=== PATIENT | male | born 1950 | race Caucasian/White ===

== ENCOUNTER 2019-03-03 23:17 | Inpatient (IN) | payer MEDICARE, OTHER ==
[2019-03-04] MEDS ORDERED: Loperamide CAP* 2 MG PO PRN (03:12)
[2019-03-04] MEDS ORDERED: Nicotine Lozenge* mini 2 MG LOZNG.MINI MT PRN (05:40)
[2019-03-04] MEDS ORDERED: Nicotine* 2MG (FRUIT FLAVOR) GUM PO PRN (05:40)
[2019-03-04 06:05] LABS: ABS Basophils 0.1 10^3/ul (0-0.2); ABS Eosinophils 0.2 10^3/ul (0-0.6); ABS Lymphocytes 2.5 10^3/ul (1.0-4.8); ABS Monocytes 0.8 10^3/ul (0-0.8); ABS Neutrophils 7.8 10^3/ul (1.5-7.7); Eosinophil % 2.1 %; Hematocrit 43 % (42-52); Hemoglobin 14.5 g/dL (14.0-18.0); Lymphocyte % 21.8 %; Mean Corpuscular HGB Conc 34 g/dL (31-36); Mean Corpuscular Hemoglobin 29 pg (27-31); Mean Corpuscular Volume 85 fL (80-94); Nucleated Red Blood Cells % 0.1; Platelet Count 268 10^3/uL (150-450); Red Blood Count 5.08 10^6 /uL (4.18-5.48); Red Cell Distribution Width 16 % (10-15); White Blood Count 11.3 10^3/uL (3.5-10.8)
[2019-03-04 06:13] LABS: INR 1.29 (0.82-1.09)
[2019-03-04 06:23] LABS: Albumin 3.2 g/dL (3.2-5.2); Albumin/Globulin Ratio 0.9 (1-3); BUN/Creatinine Ratio 18.7 (8-20); Calcium 8.7 mg/dL (8.6-10.3); EGFR African American 125.3 (>60); EGFR Non-African American 103.6 (>60); Globulin 3.5 g/dL (2-4); Potassium 3.5 mmol/L (3.5-5.0); Total Bilirubin 0.8 mg/dL (0.2-1.0); Total Protein 6.7 g/dL (6.4-8.9)
[2019-03-04 06:25] LABS: Troponin I 0.03 ng/mL (<0.04)
[2019-03-04 06:38] LABS: TSH (Thyroid Stimulating Horm) 0.45 mcIU/mL (0.34-5.60)
--- NOTE | 2019-03-04 07:47 | PN ---
Subjective Date of Service: 03/04/19 Interval History: Admitted earlier this morning. Transferred from [facility] for symptomatic bradycardia. 68M with HTN, brought to ED- for near syncope, pale and clammy appearing. At other facility, found to have symptomatic bradycardia, and transferred to our hospital. This morning, patient was asleep, but arousable, reporting feeling okay. No chest pain, no palpitations, some lightheadedness. Objective Active Medications: Acetaminophen (Tylenol Tab*) 650 mg PO Q4H PRN PRN Reason: FEVER/PAIN Heparin Sodium (Porcine) (Heparin Vial(*)) 5,000 units SUBCUT Q8HR ANKUR Sodium Chloride (Ns 0.9% 1000 Ml) 1,000 mls @ 125 mls/hr IV PER RATE ANKUR Loperamide HCl (Imodium Cap*) 2 mg PO Q8HR PRN PRN Reason: DIARRHEA Nicotine Polacrilex (Nicotine Gum*) 2 mg PO Q2H PRN PRN Reason: CRAVING Nicotine Polacrilex (Nicotine Lozenge Mini) 2 mg MT Q2H PRN PRN Reason: CRAVING Vital Signs - 8 hr 03/04/19 03/04/19 03/04/19 02:34 02:43 02:46 Temperature Pulse Rate 45 43 Respiratory 12 20 21 Rate Blood Pressure 166/86 94/82 (mmHg) O2 Sat by Pulse 99 99 Oximetry 03/04/19 03/04/19 03/04/19 03:00 03:01 03:16 Temperature Pulse Rate 43 43 45 Respiratory 17 15 19 Rate Blood Pressure 162/81 153/79 (mmHg) O2 Sat by Pulse 99 98 98 Oximetry 03/04/19 03/04/19 03/04/19 03:31 03:46 04:00 Temperature 99.0 F Pulse Rate 45 42 40 Respiratory 19 17 19 Rate Blood Pressure 161/83 153/85 (mmHg) O2 Sat by Pulse 97 97 97 Oximetry 03/04/19 03/04/19 03/04/19 04:01 04:16 04:31 Temperature Pulse Rate 41 43 41 Respiratory 17 20 17 Rate Blood Pressure 153/86 154/82 157/82 (mmHg) O2 Sat by Pulse 96 98 96 Oximetry 03/04/19 03/04/19 03/04/19 04:45 05:00 05:01 Temperature Pulse Rate 42 42 44 Respiratory 16 16 16 Rate Blood Pressure 162/91 143/76 (mmHg) O2 Sat by Pulse 96 94 94 Oximetry 03/04/19 03/04/19 03/04/19 05:16 05:31 06:00 Temperature Pulse Rate 47 44 44 Respiratory 15 17 16 Rate Blood Pressure 136/76 143/75 (mmHg) O2 Sat by Pulse 92 94 97 Oximetry 03/04/19 03/04/19 03/04/19 06:01 06:31 07:00 Temperature Pulse Rate 41 42 42 Respiratory 15 15 14 Rate Blood Pressure 129/71 142/69 (mmHg) O2 Sat by Pulse 94 95 95 Oximetry 03/04/19 07:01 Temperature Pulse Rate 44 Respiratory 15 Rate Blood Pressure 129/66 (mmHg) O2 Sat by Pulse 95 Oximetry Oxygen Devices in Use Now: Nasal Cannula Appearance: Elderly male lying in bed, not in distress Respiratory: Symmetrical Chest Expansion and Respiratory Effort, Clear to Auscultation Cardiovascular: - - No chest wall tenderness, regular bradycardia. Abdominal: NL Sounds; No Tenderness; No Distention, No Hepatosplenomegaly Extremities: No Edema Neurological: Alert and Oriented x 3 Result Diagrams: 03/04/19 05:30 03/04/19 05:30 Microbiology and Other Data: Microbiology 03/04/19 02:50 Nasal Screen MRSA (PCR) - Final Nasal Mrsa Not Detected Assess/Plan/Problems-Billing Assessment: 68M, with hx of HTN here with bradycardia. - Patient Problems (1) Symptomatic sinus bradycardia Current Visit: Yes Status: Acute Code(s): R00.1 - BRADYCARDIA, UNSPECIFIED SNOMED Code(s): 427078917 Comment: Normotensive, but sinus bradycardia with symptoms. Await cardiology input ECHO pending Lyme's titer pending will get troponin and Mg level. (2) AAA (abdominal aortic aneurysm) Current Visit: Yes Status: Acute Code(s): I71.4 - ABDOMINAL AORTIC ANEURYSM , WITHOUT RUPTURE SNOMED Code(s): 087280621 Comment: 4 cm ascending thoracic aortic aneurysm noted on CTA done at [facility]. unsure of baseline. hx of HTN Due to bradycardia cannot start BB at this point. Resume lisinopril to acheive better BP control, Will check lipids. (3) HTN (hypertension) Current Visit: Yes Status: Acute Code(s): I10 - ESSENTIAL (PRIMARY) HYPERTENSION SNOMED Code(s): 63059037 Comment: will resume home dose lisinopril. (4) DVT prophylaxis Current Visit: Yes Status: Acute Code(s): Z29.9 - ENCOUNTER FOR PROPHYLACTIC MEASURES, UNSPECIFIED SNOMED Code(s): 107385643 Comment: Heparin subQ
[2019-03-04] MEDS: Heparin VIAL(*) 5000 UNITS/ML VIAL (FIVE THOUSAND) SUBCUT SCH ×3 (07:51→21:01)
[2019-03-04] MEDS ORDERED: Iohexol 350* (CONTRAST) 500 ML MDV IV ONE (07:56)
--- NOTE | 2019-03-04 08:15 | HP ---
CC: Dr. Casillas * HISTORY AND PHYSICAL: DATE OF ADMISSION: 03/04/19 TIME OF ADMISSION: 5 o'clock a.m. CHIEF COMPLAINT: Dizziness. HISTORY OF PRESENT ILLNESS: This is a 68-year-old man with history of hypertension who presented to [facility] this morning with sudden onset of dizziness. When he woke up today, he felt great and had no concerns or complaints. He took a shower and got out of the shower and bent down to pick out some clothing and as he stood up, he felt sudden onset of dizziness, room spinning and feeling like he was going to pass out. He sat down and rested and shortly thereafter, his daughter came over to check on him and found him to be clammy and minimally responsive. So, she called EMS. In the ED, he was found to have heart rate in the 40s, which is new for him. Upon review of his outpatient records and given the concern for symptomatic bradycardia, he was transferred to our inpatient unit for cardiology evaluation. Also pertinent, his daughter Tricia is in the room and explained her concern for a CVA. At admission, she reports that he was having left-sided facial droop, which has now resolved. Mr. Spicer currently only complains of headache and points to his forehead, this headache began this morning and has been associated with light sensitivity. REVIEW OF SYSTEMS: He denies any recent illness, cough, cold, runny nose, sore throat, fever, chills, chest pain, shortness of breath, syncope. He does admit to diarrhea that was worse over the last 3 days than usual. He says he is unable even quantify how much diarrhea he was having. This was associated with poor appetite, but no abdominal pain, no travel. He does work outside, but does not recall any tick bites. ER COURSE: He received 1 L of normal saline, 0.1 mg of clonidine, 4 mg of Zofran and another liter of normal saline. PAST MEDICAL HISTORY: Hypertension, Crohn disease, DVT. SOCIAL HISTORY: He lives alone. He is a current smoker. He occasionally drinks alcohol. He works at a [employer]. ALLERGIES: PENICILLIN. FAMILY HISTORY: His dad had CABG. HOME MEDICATIONS: 1. Amlodipine 5 mg daily. 2. Lisinopril 20 mg daily. 3. Loperamide 2 mg t.i.d. PAST SURGICAL HISTORY: Left foot surgery and colectomy. PHYSICAL EXAMINATION GENERAL: Alert, well-appearing man, who is in no distress. He is resting in bed with his daughter, Tricia at the bedside. VITAL SIGNS: Temperature 99.0, heart rate 41, respiratory rate 16, pulse ox 94 % on room air, blood pressure 143/76. HEENT: Pupils 4 mm bilaterally and reactive to light. Oral mucosa is moist. NECK: No JVP. No adenopathy. CHEST: He is bradycardic and regular rhythm with no murmurs. His PMI is nondisplaced. LUNGS: His lungs are clear bilaterally. ABDOMEN: With a large, old, healed scar, soft, nontender, nondistended. No guarding or rebound. Bowel sounds normoactive. EXTREMITIES: No edema, rashes or ulcers. NEUROLOGIC: His face is symmetric. His strength is 5/5 in all extremities. He has no nystagmus. DIAGNOSTIC STUDIES/LAB DATA: Labs from [facility]: White blood cells 16.6, hemoglobin 15.6, platelets 304, 4% bands, which is within normal limits. D- dimer 490. Sodium 140, potassium 3.4, chloride 103, bicarb 27, magnesium 1.9, creatinine 1.2, BUN 17, troponin 0.015 and 0.14, BNP 237. CT head: I do not have the official report, but I have the progress note from the PA, which reports that the CT head showed mild atrophy and otherwise negative study. CTA chest: No evidence of pulmonary embolus. 4-cm ascending thoracic aortic aneurysm, azygos fissure, which is a normal variant. Chest x-ray: Low lung volumes with moderate pulmonary vascular congestion, which in part may be accentuated by the low lung volume. Recommend clinical correlation and followup. EKG: Sinus bradycardia at 41. Normal axis. MO is 175, QRS is 131, QTc is 433. T- wave flattening in 2, 3 and aVF. ASSESSMENT AND PLAN: This is a 68-year-old man with a history of hypertension, tobacco use who presents to the emergency department with sudden onset of dizziness that started this morning and is found to be bradycardic. 1. Dizziness: I agree that symptomatic bradycardia may explain his symptoms today, however a central nervous system cause is also possible. He has no nystagmus to suggest something like benign paroxysmal positional vertigo contributing to symptoms. His CT head was reported to be normal--I have contacted [facility] and asked them to fax the results, as they did not come with the transfer records. I need to get these results. Regarding his bradycardia, the PA at [facility] reviewed his outpatient records and he was never noted to be bradycardic and his heart rate was reported to be in the 80s. This is a sinus bradycardia and he currently is hemodynamically stable. So, he needs no urgent intervention. I am checking a TSH and a Lyme antibody, though this would more likely present as a heart block than a sinus bradycardia. I will order an echocardiogram for this morning and consult Cardiology. No current need for atropine or transcutaneous pacing. 2. Left-sided facial droop, now resolved. This is concerning for a transient ischemic attack versus CVA. I am concerned that this may have been related to poor perfusion in the setting of bradycardia. I will add a bubble study to his TTE and also check a CTA of his brain since a vessel occlusion would be particularly susceptible to low- flow states like sinus bradycardia. 3. Leukocytosis. He has no localizing signs or symptoms except for diarrhea several days ago, which has now resolved. I know of no gastrointestinal illnesses that provoke sinus bradycardia, however, I will check stool culture and ova and parasite. Again, I would not believe this is necessarily relevant to his presentation of dizziness. However, dehydration may have provoked it. 4. Thoracic aortic aneurysm. This was an incidental finding on his chest CTA. 5. Tobacco use. Nicotine replacement offered. 6. Hypertension. I am holding his antihypertensives in the setting of bradycardia. 7. DVT prophylaxis. Heparin subcutaneously. 8. Disposition. Admit to the intensive care unit with cardiology consult. 9. Full code. I have discussed this with Partha and his daughter. 10. His healthcare proxy is his daughter, Tricia. [id number]/[facility]PS #: [id number] MTDGaby
[2019-03-04 08:48] LABS: Magnesium 1.8 mg/dL (1.9-2.7)
[2019-03-04 08:51] LABS: Troponin I 0.02 ng/mL (<0.04)
[2019-03-04] MEDS ORDERED: amLODIPine TAB* 5 MG PO SCH (09:00)
[2019-03-04] MEDS ORDERED: Lisinopril TAB* 10 MG PO SCH (09:00)
[2019-03-04] MEDS ORDERED: Magnesium Sulfate 1 GM IV* 1 GM/100 ML BAG IV ONE (09:39)
[2019-03-04] MEDS: Lisinopril TAB* 10 MG PO SCH (10:23)
[2019-03-04] MEDS ORDERED: Meclizine TAB* 12.5 MG PO PRN (12:13)
[2019-03-04] MEDS ORDERED: Diphenoxylat/Atrop 2.5-0.025M* 1 TAB PO PRN (12:37)
[2019-03-04] MEDS: Aspirin 81 mg CHEW TAB* 81 MG TAB.CHEW PO SCH (13:12)
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
[2019-03-04] MEDS: NS 0.9% 1000 ML** 1,000 ML IV SCH ×2 (14:58→16:51)
[2019-03-04] MEDS: Acetaminophen TAB* 325 MG PO PRN (20:59)
[2019-03-04] MEDS: Famotidine IV* 10 MG/ML 2 ML (20 mg) IV SLOW PU SCH (21:01)
[2019-03-05] MEDS: NS 0.9% 1000 ML** 1,000 ML IV SCH (00:28)
[2019-03-05] MEDS: Ondansetron INJ* 2 MG/ML VIAL IV PRN (06:57)
[2019-03-05] MEDS: Heparin VIAL(*) 5000 UNITS/ML VIAL (FIVE THOUSAND) SUBCUT SCH ×3 (06:57→21:53)
[2019-03-05] MEDS: Aspirin 81 mg CHEW TAB* 81 MG TAB.CHEW PO SCH (08:28)
[2019-03-05] MEDS: Lisinopril TAB* 10 MG PO SCH (08:28)
[2019-03-05] MEDS: Famotidine IV* 10 MG/ML 2 ML (20 mg) IV SLOW PU SCH ×2 (08:28→21:53)
[2019-03-05 09:27] LABS: Calcium 8.1 mg/dL (8.6-10.3)
[2019-03-05 09:32] LABS: BUN/Creatinine Ratio 14.5 (8-20); EGFR African American 111.5 (>60); EGFR Non-African American 92.1 (>60)
--- NOTE | 2019-03-05 11:00 | PN ---
Subjective Date of Service: 03/05/19 Interval History: Transferred from ICU to telemetry floor yesterday No acute issues overnight, continues to have bradycardia, yesterday attempt to walk/exertion did not work as patient felt dizzy. patient reports dizziness is on/off- improved since arrival, and meclizine seems to help. Additionally did not get loperamide yesterday- and patient states no BM today, and yesterday per patient had some brown liquid on underwear- but reports no additional BM. Objective Active Medications: Acetaminophen (Tylenol Tab*) 650 mg PO Q4H PRN PRN Reason: FEVER/PAIN Last Admin: 03/04/19 20:59 Dose: 650 mg Amlodipine Besylate (Norvasc Tab*) 5 mg PO DAILY [facility] Aspirin (Aspirin 81 Mg Chew Tab*) 81 mg PO DAILY [facility] Last Admin: 03/05/19 08:28 Dose: 81 mg Diphenoxylate HCl/Atropine (Lomotil Tab*) 1 tab PO BID PRN PRN Reason: DIARRHEA Famotidine (Pepcid Iv*) 20 mg IV SLOW PU BID [facility] Last Admin: 03/05/19 08:28 Dose: 20 mg Heparin Sodium (Porcine) (Heparin Vial(*)) 5,000 units SUBCUT Q8HR [facility] Last Admin: 03/05/19 06:57 Dose: 5,000 units Lisinopril (Prinivil Tab*) 20 mg PO DAILY [facility] Last Admin: 03/05/19 08:28 Dose: 20 mg Meclizine HCl (Antivert Tab*) 12.5 mg PO Q8HR PRN PRN Reason: DIZZINESS Last Admin: 03/04/19 21:00 Dose: 12.5 mg Nicotine Polacrilex (Nicotine Gum*) 2 mg PO Q2H PRN PRN Reason: CRAVING Nicotine Polacrilex (Nicotine Lozenge Mini) 2 mg MT Q2H PRN PRN Reason: CRAVING Ondansetron HCl (Zofran Inj*) 4 mg IV Q6H PRN PRN Reason: NAUSEA Last Admin: 03/05/19 06:57 Dose: 4 mg Vital Signs - 8 hr 03/05/19 03/05/19 03:44 07:39 Temperature 98.1 F 97.2 F Pulse Rate 46 39 Respiratory 18 16 Rate Blood Pressure 125/59 137/61 (mmHg) O2 Sat by Pulse 99 96 Oximetry Oxygen Devices in Use Now: Nasal Cannula - was on nasal canula at 2 liters, removed it. will monitor off oxygen. Appearance: Elderly male in bed, not in distress. Eyes: PERRLA Respiratory: Symmetrical Chest Expansion and Respiratory Effort, Clear to Auscultation Cardiovascular: - - regular bradycardia. Abdominal: NL Sounds; No Tenderness; No Distention, No Hepatosplenomegaly, - - surgical scars noted. Neurological: Alert and Oriented x 3, - - no nystagmus. Result Diagrams: 03/04/19 05:30 03/05/19 07:15 Microbiology and Other Data: Microbiology 03/04/19 02:50 Nasal Screen MRSA (PCR) - Final Nasal Mrsa Not Detected Assess/Plan/Problems-Billing Assessment: 68M, with hx of HTN here with bradycardia. - Patient Problems (1) Symptomatic sinus bradycardia Current Visit: Yes Status: Acute Code(s): R00.1 - BRADYCARDIA, UNSPECIFIED SNOMED Code(s): 145632439 Comment: Sinus bradycardia w/ symptoms- unclear if sx are due to bradycardia or due to vertigo. Cardiology evalauted patient, at this point no pacemaker, patient was taking loperamide daily three times a day- which can cause bradycardia- d/w patient and loperamide d/c'ed started lomotil instead. ECHO pending Lyme's titer negative. Mg repleted 03/04, (2) AAA (abdominal aortic aneurysm) Current Visit: Yes Status: Acute Code(s): I71.4 - ABDOMINAL AORTIC ANEURYSM , WITHOUT RUPTURE SNOMED Code(s): 629583851 Comment: 4 cm ascending thoracic aortic aneurysm noted on CTA done at [facility]. unsure of baseline. hx of HTN Due to bradycardia cannot start BB at this point. c/w lisnopril, resumed home dose atenolol dicussed smoking cessation. (3) HTN (hypertension) Current Visit: Yes Status: Acute Code(s): I10 - ESSENTIAL (PRIMARY) HYPERTENSION SNOMED Code(s): 32366810 Comment: lisinopril restarted 03/04,,and norvasc added today. (4) DVT prophylaxis Current Visit: Yes Status: Acute Code(s): Z29.9 - ENCOUNTER FOR PROPHYLACTIC MEASURES, UNSPECIFIED SNOMED Code(s): 413239439 Comment: Heparin subQ (5) Crohn disease Current Visit: Yes Status: Acute Code(s): K50.90 - CROHN'S DISEASE, UNSPECIFIED, WITHOUT COMPLICATIONS SNOMED Code(s): 73312696 Comment: Hx of crohn's disease, with numerous bowel surgeries, per patient was started on loperamide- which he takes three times a day, due to bradycardia - loperamide needs to be held, trial of lomotil. No BM today. (6) Vertigo Current Visit: Yes Status: Acute Code(s): R42 - DIZZINESS AND GIDDINESS SNOMED Code(s): 883141678 Comment: ears checked- no acute issues. CT head done at other facility- negative. MRI pending, started asa 81mg in meantime. meclizine PRN.
--- NOTE | 2019-03-05 11:41 | ECHO ---
*[facility]* [place] [address] Fax #: [phone] Transthoracic Echocardiogram Patient: Partha Spicer : 1950 Study Date: 03/05/2019 Age: 68 Gender: M HR: 46 bpm Height: 71 in /180.3 cm BSA: 2.3 m^2 Weight: 245.5 lb /111.6 kg BMI: 34.3 kg/m^2 *Structural Mill Supervisor: * Alma Doss [facility] *Referring Physician: * Ruth Ann Grewal *Reading Physician: * Erwin Bethea MD Indications: Abnormal EKG. History: DVT. Risk factors: Current tobacco use. Conclusions Summary: 1. Left ventricle: The cavity size is normal. Wall thickness is moderately increased. Systolic function is normal. The estimated ejection fraction is 55-60%. Wall motion is normal; there are no regional wall motion abnormalities. 2. Left atrium: The atrium is severely dilated. 3. Right atrium: The atrium is moderately to severely dilated. 4. Mitral valve: The findings are consistent with mild stenosis. 5. Ascending aorta: The ascending aorta is mildly dilated. 6. There is no prior echocardiogram available to compare with at this time. Study data: Transthoracic echocardiogram. Procedure: Transthoracic echocardiography was performed. Image quality was fair. Complete 2D, spectral Doppler, and color flow Doppler. Location: Bedside. Patient status: Inpatient. Patient room number: 444 01. Rhythm: Bradycardia. Findings Left ventricle: The cavity size is normal. Wall thickness is moderately increased. Systolic function is normal. The estimated ejection fraction is 55-60%. Wall motion is normal; there are no regional wall motion abnormalities. Left ventricular diastolic function parameters are normal. Right ventricle: The cavity size is normal. Systolic function is normal. Left atrium: The atrium is severely dilated. Right atrium: The atrium is moderately to severely dilated. Mitral valve: The annulus is mildly to moderately calcified. The leaflets are mildly thickened. The findings are consistent with mild stenosis. There is trivial regurgitation. Aortic valve: The leaflets are mildly thickened. There is no evidence of stenosis. There is no significant regurgitation. Tricuspid valve: The leaflets are normal thickness. There is no significant regurgitation. Pulmonic valve: The leaflets are normal thickness. There is no evidence of stenosis. There is trivial regurgitation. Aorta: Aortic root: The aortic root is appears normal. Ascending aorta: The ascending aorta is mildly dilated. Aortic arch: The aortic arch is poorly visualized. Pericardium: There is no significant pericardial effusion. Pulmonary arteries: Not well visualized. Systolic pressure can not be accurately estimated. Systemic veins: Inferior vena cava: The vessel is dilated. The respirophasic diameter changes are in the normal range (>= 50%). Measurements Left ventricle Value Ref Right atrium continued Value Ref ABIGAIL, LAX 5.2 cm 4.2 - 5.8 ML dim, ES, A4C (H) 4.5 cm 2.6 - 4.4 ESD, LAX 3.3 cm 2.5 - 4.0 Estimated RAP 8 mm Hg --------- FS, LAX 36 % 25 - 43 PW, ED, LAX (H) 1.7 cm 0.6 - 1.0 Aortic valve Value Ref EF 66 % 52 - 72 Eitan diam, ED 2.2 cm --------- E', lat eitan, TDI 10.8 cm/sec >=10.0 Peak v, S 1.72 m/sec ----- ---- E/e', lat eitan, 11 VTI, S 34.2 cm -------- - TDI Mean grad, S 5.0 mm Hg --------- E', med eitan, TDI 7.5 cm/sec >=7.0 Peak grad, S 12.0 mm Hg ----- ---- E/e', med eitan, 16 TDI Mitral valve Value Ref E', avg, TDI 9.2 cm/sec Peak E 1.23 m/sec -------- - E/e', avg, TDI 13 <=14 Peak A 0.41 m/sec ----- ---- Decel time 309 ms --------- LVOT Value Ref PHT 124 ms --------- Peak carly, S 1.3 m/sec Mean grad, D 2.0 mm Hg --------- Peak grad, S 7 mm Hg Peak grad, D 5.0 mm Hg --------- Mean grad, S 3 mm Hg Peak E/A ratio 3 --------- MVA, PHT 1.8 cm^2 --------- Ventricular septum Value Ref IVS, ED (H) 1.5 cm 0.6 - 1.0 Pulmonic valve Value Ref Peak v, S 0.77 m/sec --------- Right ventricle Value Ref Peak grad, S 2.0 mm Hg --------- ABIGAIL, LAX 3.5 cm ABIGAIL minor ax, (H) 3.9 cm 1.9 - 3.5 Aortic root Value Ref A4C mid Root diam 3.2 cm <4.4 Left atrium Value Ref Ascending aorta Value Ref AP dim, ES (H) 4.50 cm 3.00 - AAo AP diam, S 3.8 cm --------- 4.00 ML dim, A4C 5.8 cm Inferior vena cava Value Ref SI dim, A4C 7.2 cm Diam 2.6 cm --------- Vol/bsa, ES, A/L (H) 51 ml/m^2 16 - 34 Right atrium Value Ref SI dim, ES (H) 6.8 cm 3.4 - 5.3 Legend: (L) and (H) heather values outside specified reference range. Prepared and electronically signed by Erwin Bethea MD 03/05/2019 11:41
[2019-03-05 12:38] LABS: ABS Basophils 0.1 10^3/ul (0-0.2); ABS Eosinophils 0.2 10^3/ul (0-0.6); ABS Lymphocytes 2.3 10^3/ul (1.0-4.8); ABS Monocytes 0.7 10^3/ul (0-0.8); ABS Neutrophils 6.3 10^3/ul (1.5-7.7); Eosinophil % 2.2 %; Hematocrit 41 % (42-52); Hemoglobin 13.7 g/dL (14.0-18.0); Lymphocyte % 24.1 %; Mean Corpuscular HGB Conc 33 g/dL (31-36); Mean Corpuscular Hemoglobin 29 pg (27-31); Mean Corpuscular Volume 86 fL (80-94); Mean Platelet Volume 7.3 fL (7.4-10.4); Nucleated Red Blood Cells % 0.1; Platelet Count 249 10^3/uL (150-450); Red Blood Count 4.79 10^6 /uL (4.18-5.48); Red Cell Distribution Width 15 % (10-15); White Blood Count 9.7 10^3/uL (3.5-10.8)
[2019-03-05] MEDS: amLODIPine TAB* 5 MG PO SCH (13:05)
[2019-03-05] MEDS: Acetaminophen TAB* 325 MG PO PRN ×2 (17:07→21:52)
[2019-03-05] MEDS: Diphenoxylat/Atrop 2.5-0.025M* 1 TAB PO SCH (21:51)
[2019-03-06] MEDS: Heparin VIAL(*) 5000 UNITS/ML VIAL (FIVE THOUSAND) SUBCUT SCH ×3 (05:34→20:32)
[2019-03-06] MEDS: Acetaminophen TAB* 325 MG PO PRN ×3 (09:24→20:31)
[2019-03-06] MEDS: Lisinopril TAB* 10 MG PO SCH (09:24)
[2019-03-06] MEDS: Diphenoxylat/Atrop 2.5-0.025M* 1 TAB PO SCH ×3 (09:25→20:32)
[2019-03-06] MEDS: Aspirin 81 mg CHEW TAB* 81 MG TAB.CHEW PO SCH (09:26)
[2019-03-06] MEDS: amLODIPine TAB* 5 MG PO SCH (09:26)
[2019-03-06] MEDS: Famotidine IV* 10 MG/ML 2 ML (20 mg) IV SLOW PU SCH ×2 (09:27→20:32)
--- NOTE | 2019-03-06 11:09 | PN ---
Subjective Date of Service: 03/06/19 Interval History: No acute issues overnight, having on/off dizziness/vertigo. No ear pain, Continues to be bradycardic, but no lightheadedness, no chest pain, no shortness of breath. MRI done today, received a call from radiology that there is right late acute/ early subacute cerebellar infarct with slow flow vs occlusion at the PICA. Objective Active Medications: Acetaminophen (Tylenol Tab*) 650 mg PO Q4H PRN PRN Reason: FEVER/PAIN Last Admin: 03/06/19 09:24 Dose: 650 mg Aspirin (Aspirin 81 Mg Chew Tab*) 81 mg PO DAILY [facility] Last Admin: 03/06/19 09:26 Dose: 81 mg Clopidogrel Bisulfate (Plavix Tab*) 75 mg PO DAILY [facility] Diphenoxylate HCl/Atropine (Lomotil Tab*) 1 tab PO TID [facility] Last Admin: 03/06/19 09:25 Dose: 1 tab Famotidine (Pepcid Iv*) 20 mg IV SLOW PU BID [facility] Last Admin: 03/06/19 09:27 Dose: 20 mg Heparin Sodium (Porcine) (Heparin Vial(*)) 5,000 units SUBCUT Q8HR [facility] Last Admin: 03/06/19 05:34 Dose: 5,000 units Meclizine HCl (Antivert Tab*) 12.5 mg PO Q8HR PRN PRN Reason: DIZZINESS Last Admin: 03/04/19 21:00 Dose: 12.5 mg Nicotine Polacrilex (Nicotine Gum*) 2 mg PO Q2H PRN PRN Reason: CRAVING Nicotine Polacrilex (Nicotine Lozenge Mini) 2 mg MT Q2H PRN PRN Reason: CRAVING Ondansetron HCl (Zofran Inj*) 4 mg IV Q6H PRN PRN Reason: NAUSEA Last Admin: 03/05/19 06:57 Dose: 4 mg Vital Signs - 8 hr 03/06/19 03/06/19 03/06/19 03:48 08:00 09:25 Temperature 98.3 F 97.8 F Pulse Rate 47 95 Respiratory 18 20 18 Rate Blood Pressure 147/65 138/67 (mmHg) O2 Sat by Pulse 94 95 Oximetry Appearance: Lying in bed, not in distress Eyes: PERRLA Respiratory: Symmetrical Chest Expansion and Respiratory Effort, Clear to Auscultation Cardiovascular: - - no chest wall tenderness, regular bradycardia. Abdominal: NL Sounds; No Tenderness; No Distention, No Hepatosplenomegaly Extremities: No Edema Neurological: Alert and Oriented x 3, - - motor 5/5 all 4 ext, no dysmetria, speech clear, tongue midline. Result Diagrams: 03/05/19 11:41 03/05/19 07:15 Microbiology and Other Data: Microbiology 03/04/19 02:50 Nasal Screen MRSA (PCR) - Final Nasal Mrsa Not Detected Assess/Plan/Problems-Billing Assessment: 68M, with hx of HTN here with bradycardia, vertigo, MRI shows Right cerebellar infarct. - Patient Problems (1) Stroke Current Visit: Yes Status: Acute Code(s): I63.9 - CEREBRAL INFARCTION, UNSPECIFIED SNOMED Code(s): 984555381 Comment: Right cerebellar infarct d/w Dr. Murcia for neurology consult c/w asa, plavix added, LDL < 70. full MRI report pending. ECHO done yesterday - will see if it was a bubble study, on tele : sinus bradycardia, allow for pemissive HTN, if SBP goes greater than 180- will intervene- risk and benefits stroke vs AAA. (2) Symptomatic sinus bradycardia Current Visit: Yes Status: Acute Code(s): R00.1 - BRADYCARDIA, UNSPECIFIED SNOMED Code(s): 801928598 Comment: Sinus bradycardia- his vertigo sx now attributed to stroke. Cardiology evalauted patient, at this point no pacemaker, patient was taking loperamide daily three times a day- which can cause bradycardia- d/w patient and loperamide d/c'ed started lomotil instead. Lyme's titer negative. Mg repleted 03/04, (3) AAA (abdominal aortic aneurysm) Current Visit: Yes Status: Acute Code(s): I71.4 - ABDOMINAL AORTIC ANEURYSM , WITHOUT RUPTURE SNOMED Code(s): 517826420 Comment: 4 cm ascending thoracic aortic aneurysm noted on CTA done at [facility]. unsure of baseline. hx of HTN (4) HTN (hypertension) Current Visit: Yes Status: Acute Code(s): I10 - ESSENTIAL (PRIMARY) HYPERTENSION SNOMED Code(s): 15463938 Comment: hold antihypertensives to allow permissive HTN (5) DVT prophylaxis Current Visit: Yes Status: Acute Code(s): Z29.9 - ENCOUNTER FOR PROPHYLACTIC MEASURES, UNSPECIFIED SNOMED Code(s): 209605172 Comment: Heparin subQ (6) Crohn disease Current Visit: Yes Status: Acute Code(s): K50.90 - CROHN'S DISEASE, UNSPECIFIED, WITHOUT COMPLICATIONS SNOMED Code(s): 23312065 Comment: Hx of crohn's disease, with numerous bowel surgeries, per patient was started on loperamide- which he takes three times a day, due to bradycardia - loperamide needs to be held, trial of lomotil. two bowel movement yesterday. (7) Vertigo Current Visit: Yes Status: Acute Code(s): R42 - DIZZINESS AND GIDDINESS SNOMED Code(s): 469580642 Comment: due to right cerebellar infarct. meclizine PRN
[2019-03-06] MEDS: Clopidogrel TAB* 75 MG PO SCH (11:35)
--- NOTE | 2019-03-06 15:16 | ECHO ---
*[facility]* [place] [address] Fax #: [phone] Limited Transthoracic Echocardiogram Patient: Partha Spicer : 1950 Study Date: 03/06/2019 Age: 68 Gender: M HR: 44 bpm Height: 70.9 in /180 cm BSA: 2.4 m^2 Weight: 246.4 lb /112 kg BMI: 34.6 kg/m^2 *Over Short And Damage Clerk: Alma Ledesma [facility] *Referring Physician: * Eve Pyle *Reading Physician: Jay Lambert MD Indications: CVA. History: DVT. Risk factors: Current tobacco use. Conclusions Summary: 1. Atrial septum: A PFO is not demonstrated by agitated saline contrast. Negative bubble study. 2. Limited echocardiogram for bubble study. Full transthoracic echocardiogram done 03/05/2019. Study data: Transthoracic echocardiogram, limited study. Procedure: Transthoracic echocardiography was performed. Image quality was good. A bubble study was performed. Location: Bedside. Patient status: Inpatient. Patient room number: 444. Rhythm: Bradycardia. Findings Atrial septum: A PFO is not demonstrated by agitated saline contrast. Negative bubble study. Prepared and electronically signed by Jay Rojas MD 03/06/2019 15:15
--- NOTE | 2019-03-06 18:03 | CONS ---
CONSULTATION REPORT: DATE OF CONSULT: 03/06/19 PATIENT OF: Dr. Pyle. HISTORY OF PRESENT ILLNESS: This is a 68-year-old man I am asked to evaluate for new onset of stroke. He notes that he had the sudden onset on Wednesday of acute onset of vertigo and with difficulty walking and nausea, but no headache or weakness. The patient presents to [place] and was transferred for these symptoms as well as bradycardia to the 40s, which was thought to be symptomatic. He has had no prior strokes or TIAs. He has had a mild bifrontal headache that is now resolved. He had been taking significant Lomotil for some chronic diarrhea that he has had. PAST MEDICAL HISTORY: 1. Hypertension. 2. Crohn disease. 3. DVT. PAST SURGICAL HISTORY: He is status post left foot surgery and colectomy. MEDICATIONS: At home include: 1. Amlodipine 5 mg daily. 2. Loperamide 2 mg t.i.d. 3. Lisinopril 20 mg daily. ALLERGIES: He is allergic to PENICILLIN. FAMILY HISTORY: His father had a CABG. There is no family history of stroke. SOCIAL HISTORY: He lives alone. He smokes 4 to 8 cigars a day and drinks alcohol on occasion. 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 PHYSICAL EXAMINATION: On exam, temperature 98.9, pulse 52, respiratory rate 16 , blood pressure 141/70. He is alert and oriented with normal speech and comprehension. His speech sounded minimally slurred to me, but he states that this is his normal baseline. He had full extraocular movements without saccades. He had mild past-pointing on the right compared to the left and floppier rapid alternating movement on the right more than the left. Strength is 5/5. No pronator drift. Sensation intact to light touch. Reflexes were 1 and equal. Toes were downgoing. Chest: Clear. Cardiovascular: Regular rate and rhythm. Abdomen is soft with positive bowel sounds. DIAGNOSTIC STUDIES/LAB DATA: I reviewed his MRI scan, which did show some diffuse white matter disease, but also a relatively acute stroke seen both on FLAIR and DWI consistent with the stroke presentation on 03/04/19. His MRI scan showed small forward occlusion in the right PICA, but he had a CTA on presentation on 03/04/19 which did not show any stenosis in the head or neck, other than 30% in the left carotid Doppler. He had a negative bubble study with no clot noted. Labs include normal BMP, calcium 8.1, magnesium 1.8. LDL 69. ASSESSMENT AND PLAN: Mr. Spicer has had a right cerebellar stroke in the setting of some chronic microvascular disease with risk factors including hypertension and smoking. We discussed smoking cessation with him and he will need his hypertension treated, and he has been started on aspirin and Plavix as well as nicotine gum. The aspirin and Plavix should be continued for a month and then he should go to a single platelet agent. He has a history of feeling of irregular heartbeat on occasion. I recommended further monitoring and I discussed with him that a loop recorder would be an implant, but would be a more definitive study than the Holter and be more accurate for ruling out atrial fibrillation and that if he had atrial fibrillation, it would dramatically change his care and we would be able to further reduce his risk of stroke by switching him to anticoagulation. I discussed that this was less likely than just atherosclerotic disease, but it was impossible to know without doing studies. He is going to let the hospitalist know which test he prefers, but he did seem reluctant to do the loop recorder monitoring initially. Thank you for sharing his case. [id number]/[facility] #: [id number] BOGDAN
[2019-03-07] MEDS: Heparin VIAL(*) 5000 UNITS/ML VIAL (FIVE THOUSAND) SUBCUT SCH ×3 (05:26→21:46)
[2019-03-07 06:48] LABS: ABS Basophils 0.1 10^3/ul (0-0.2); ABS Eosinophils 0.5 10^3/ul (0-0.6); ABS Monocytes 0.9 10^3/ul (0-0.8); ABS Neutrophils 7.8 10^3/ul (1.5-7.7); Eosinophil % 4.3 %; Hematocrit 44 % (42-52); Hemoglobin 15.1 g/dL (14.0-18.0); Lymphocyte % 17.6 %; Mean Corpuscular HGB Conc 34 g/dL (31-36); Mean Corpuscular Hemoglobin 29 pg (27-31); Mean Corpuscular Volume 85 fL (80-94); Mean Platelet Volume 7.4 fL (7.4-10.4); Platelet Count 254 10^3/uL (150-450); Red Blood Count 5.14 10^6 /uL (4.18-5.48); Red Cell Distribution Width 16 % (10-15); White Blood Count 11.1 10^3/uL (3.5-10.8)
[2019-03-07 07:00] LABS: BUN/Creatinine Ratio 10.7 (8-20); Calcium 8.6 mg/dL (8.6-10.3); EGFR African American 125.3 (>60); EGFR Non-African American 103.6 (>60); Potassium 3.2 mmol/L (3.5-5.0)
[2019-03-07] MEDS: Diphenoxylat/Atrop 2.5-0.025M* 1 TAB PO SCH ×3 (08:38→20:11)
[2019-03-07] MEDS: Acetaminophen TAB* 325 MG PO PRN ×2 (08:39→19:00)
[2019-03-07] MEDS: Famotidine IV* 10 MG/ML 2 ML (20 mg) IV SLOW PU SCH (08:40)
[2019-03-07] MEDS: Aspirin 81 mg CHEW TAB* 81 MG TAB.CHEW PO SCH (08:40)
[2019-03-07] MEDS: Clopidogrel TAB* 75 MG PO SCH (08:40)
[2019-03-07] MEDS ORDERED: Potassium Chlor TAB* 20 MEQ TAB.ER PO ONE (09:50)
--- NOTE | 2019-03-07 17:01 | PN ---
Subjective Date of Service: 03/07/19 Interval History: patient seen, today, he feels still unsteady with ambulations. PT saw patient and recommended SNF. cardiology recommendations noted and he was able to have good chronotropic challenge with ambulations and heart rate was up toward the 90 's hence patient will not require pacemaker. no other events Objective Active Medications: Acetaminophen (Tylenol Tab*) 650 mg PO Q4H PRN PRN Reason: FEVER/PAIN Last Admin: 03/07/19 08:39 Dose: 650 mg Aspirin (Aspirin 81 Mg Chew Tab*) 81 mg PO DAILY [facility] Last Admin: 03/07/19 08:40 Dose: 81 mg Clopidogrel Bisulfate (Plavix Tab*) 75 mg PO DAILY [facility] Last Admin: 03/07/19 08:40 Dose: 75 mg Diphenoxylate HCl/Atropine (Lomotil Tab*) 1 tab PO TID [facility] Last Admin: 03/07/19 15:42 Dose: 1 tab Famotidine (Pepcid Iv*) 20 mg IV SLOW PU BID [facility] Last Admin: 03/07/19 08:40 Dose: 20 mg Heparin Sodium (Porcine) (Heparin Vial(*)) 5,000 units SUBCUT Q8HR [facility] Last Admin: 03/07/19 15:41 Dose: 5,000 units Meclizine HCl (Antivert Tab*) 12.5 mg PO Q8HR PRN PRN Reason: DIZZINESS Last Admin: 03/04/19 21:00 Dose: 12.5 mg Nicotine Polacrilex (Nicotine Gum*) 2 mg PO Q2H PRN PRN Reason: CRAVING Nicotine Polacrilex (Nicotine Lozenge Mini) 2 mg MT Q2H PRN PRN Reason: CRAVING Ondansetron HCl (Zofran Inj*) 4 mg IV Q6H PRN PRN Reason: NAUSEA Last Admin: 03/05/19 06:57 Dose: 4 mg Vital Signs - 8 hr 03/07/19 03/07/19 03/07/19 10:26 11:13 15:35 Temperature 97.6 F Pulse Rate 81 Respiratory 16 18 16 Rate Blood Pressure 137/91 (mmHg) O2 Sat by Pulse 96 Oximetry 03/07/19 03/07/19 15:41 15:42 Temperature Pulse Rate Respiratory 16 16 Rate Blood Pressure (mmHg) O2 Sat by Pulse Oximetry Oxygen Devices in Use Now: Nasal Cannula - was on nasal canula at 2 liters, removed it. will monitor off oxygen. Appearance: awake, alert no distress Ears/Nose/Mouth/Throat: NL Teeth, Lips, Gums Neck: NL Appearance and Movements; NL JVP, Trachea Midline Respiratory: Clear to Auscultation Cardiovascular: NL Sounds; No Murmurs; No JVD, No Edema Extremities: No Edema Neurological: Alert and Oriented x 3, NL Muscle Strength and Tone Result Diagrams: 03/07/19 05:48 03/07/19 05:47 Microbiology and Other Data: Microbiology 03/04/19 02:50 Nasal Screen MRSA (PCR) - Final Nasal Mrsa Not Detected Assess/Plan/Problems-Billing Assessment: 68M, with hx of HTN here with bradycardia, vertigo, MRI shows Right cerebellar infarct. - Patient Problems (1) AAA (abdominal aortic aneurysm) Current Visit: Yes Status: Acute Code(s): I71.4 - ABDOMINAL AORTIC ANEURYSM , WITHOUT RUPTURE SNOMED Code(s): 768128226 Comment: - 4 cm ascending thoracic aortic aneurysm noted on CTA done at [facility]. unsure of baseline. - hx of HTN - repeat in 6 months and ouptatient follow up . will defer to PCP (2) Stroke Current Visit: Yes Status: Acute Code(s): I63.9 - CEREBRAL INFARCTION, UNSPECIFIED SNOMED Code(s): 679457774 Comment: - Right cerebellar infarct - seen by Dr. Murcia for neurology consult - c/w asa, plavix, LDL < 70. dy, - on tele : sinus bradycardia, allow for pemissive HTN, if SBP goes greater than 180- will intervene- risk and benefits stroke vs AAA. (3) Symptomatic sinus bradycardia Current Visit: Yes Status: Acute Code(s): R00.1 - BRADYCARDIA, UNSPECIFIED SNOMED Code(s): 636488514 Comment: - Sinus bradycardia- his vertigo sx now attributed to stroke. - Cardiology evalauted patient, at this point no pacemaker, patient was taking loperamide daily three times a day- which can cause bradycardia- d/w patient and loperamide d/c'ed started lomotil instead. - Lyme's titer negative. - Mg repleted 03/04, (4) DVT prophylaxis Current Visit: Yes Status: Acute Code(s): Z29.9 - ENCOUNTER FOR PROPHYLACTIC MEASURES, UNSPECIFIED SNOMED Code(s): 712522436 Comment: Heparin subQ
[2019-03-07] MEDS: Famotidine TAB* 20 MG PO SCH (20:10)
[2019-03-07] MEDS: Ondansetron INJ* 2 MG/ML VIAL IV PRN (20:11)
[2019-03-08] MEDS: Heparin VIAL(*) 5000 UNITS/ML VIAL (FIVE THOUSAND) SUBCUT SCH ×3 (04:24→20:52)
[2019-03-08 07:19] LABS: Calcium 8.8 mg/dL (8.6-10.3); EGFR African American 113.1 (>60); EGFR Non-African American 93.4 (>60); Magnesium 1.8 mg/dL (1.9-2.7); Phosphorus 2.9 mg/dL (2.5-5.0); Potassium 3.3 mmol/L (3.5-5.0)
[2019-03-08] MEDS: Aspirin 81 mg CHEW TAB* 81 MG TAB.CHEW PO SCH (08:18)
[2019-03-08] MEDS: Famotidine TAB* 20 MG PO SCH ×2 (08:18→20:52)
[2019-03-08] MEDS: Clopidogrel TAB* 75 MG PO SCH (08:18)
[2019-03-08] MEDS: Diphenoxylat/Atrop 2.5-0.025M* 1 TAB PO SCH ×3 (08:18→20:51)
[2019-03-08] MEDS ORDERED: Potassium Chlor TAB* 20 MEQ TAB.ER PO ONE (09:14)
[2019-03-08] MEDS ORDERED: Magnesium Sulfate 2 GM IV* 2 GM/50 ML BAG IVPB ONE (09:14)
[2019-03-08] MEDS ORDERED: Lidocaine 1% w EPI 1:100,000* 30 ML VIAL ONE (11:26)
--- NOTE | 2019-03-08 12:20 | PN ---
Subjective Date of Service: 03/08/19 - CC: cryptogenic stroke. Interval History: Mild residual dizziness. Head ache above eyes. No new c/o. Medications Active Medications: Acetaminophen (Tylenol Tab*) 650 mg PO Q4H PRN PRN Reason: FEVER/PAIN Last Admin: 03/07/19 19:00 Dose: 650 mg Aspirin (Aspirin 81 Mg Chew Tab*) 81 mg PO DAILY [facility] Last Admin: 03/08/19 08:18 Dose: 81 mg Clopidogrel Bisulfate (Plavix Tab*) 75 mg PO DAILY [facility] Last Admin: 03/08/19 08:18 Dose: 75 mg Diphenoxylate HCl/Atropine (Lomotil Tab*) 1 tab PO TID [facility] Last Admin: 03/08/19 08:18 Dose: 1 tab Famotidine (Pepcid Tab*) 20 mg PO BID [facility] Last Admin: 03/08/19 08:18 Dose: 20 mg Heparin Sodium (Porcine) (Heparin Vial(*)) 5,000 units SUBCUT Q8HR [facility] Last Admin: 03/08/19 04:24 Dose: Not Given Meclizine HCl (Antivert Tab*) 12.5 mg PO Q8HR PRN PRN Reason: DIZZINESS Last Admin: 03/04/19 21:00 Dose: 12.5 mg Nicotine Polacrilex (Nicotine Gum*) 2 mg PO Q2H PRN PRN Reason: CRAVING Nicotine Polacrilex (Nicotine Lozenge Mini) 2 mg MT Q2H PRN PRN Reason: CRAVING Ondansetron HCl (Zofran Inj*) 4 mg IV Q6H PRN PRN Reason: NAUSEA Last Admin: 03/07/19 20:11 Dose: 4 mg Objective Vital Signs: Temp Pulse Resp BP Pulse Ox 98.3 F 45 19 127/78 90 03/08/19 11:23 03/08/19 11:20 03/08/19 11:26 03/08/19 11:20 03/08/19 11:20 Oxygen Devices in Use Now: Nasal Cannula - was on nasal canula at 2 liters, removed it. will monitor off oxygen. Appearance: short, stocky somewhat older gentleman in no distress. Eyes: PERRLA Ears/Nose/Mouth/Throat: Mucous Membranes Moist Neck: NL Appearance and Movements; NL JVP Respiratory: Symmetrical Chest Expansion and Respiratory Effort, Clear to Auscultation Cardiovascular: RRR Abdominal: NL Sounds; No Tenderness; No Distention Extremities: No Edema Skin: No Rash or Ulcers Neurological: Alert and Oriented x 3 Lines/Tubes/Other Access: Clean, Dry and Intact Peripheral IV Laboratory Results: 03/07/19 05:48 03/08/19 06:05 INR (Anticoag Therapy) 1.29 (0.82-1.09) H 03/04/19 05:30 Total Bilirubin 0.80 mg/dL (0.2-1.0) 03/04/19 05:30 AST 9 U/L (13-39) L 03/04/19 05:30 ALT 8 U/L (7-52) 03/04/19 05:30 Alkaline Phosphatase 74 U/L (34-104) 03/04/19 05:30 Total Protein 6.7 g/dL (6.4-8.9) 03/04/19 05:30 Albumin 3.2 g/dL (3.2-5.2) 03/04/19 05:30 Globulin 3.5 g/dL (2-4) 03/04/19 05:30 Albumin/Globulin Ratio 0.9 (1-3) L 03/04/19 05:30 Triglycerides 93 mg/dL 03/04/19 08:05 Cholesterol 111 mg/dL 03/04/19 08:05 LDL Cholesterol 69 mg/dL 03/04/19 08:05 HDL Cholesterol 23.0 mg/dL 03/04/19 08:05 TSH 0.45 mcIU/mL (0.34-5.60) 03/04/19 05:30 03/04/19 03/04/19 05:30 08:05 Troponin I 0.03 0.02 Diagnostic Imaging: Patient Name: AYESHA VAZQUEZ Medical Record#: [id number] Ordering Physician: Eve Pyle MD Acct.#: [id number] : 1950 Age: 68 Sex: M Location: [address] [place] [address]/TELEMETRY Exam Date: 03/06/191212 ADM Status: ADM IN Order Information: MRI BRAIN W/O Accession Number: [id number] CPT: 44055 INDICATION: Dizzy COMPARISON: March 04, 2019 head and neck CTA TECHNIQUE: Sagittal T1, axial T1, T2, susceptibility, FLAIR and diffusion weighted images were obtained. FINDINGS: A late acute to early subacute infarct extends along the medial right cerebellar hemisphere. There is no significant associated mass effect or acute hemorrhage. T2 FLAIR hyperintense foci in the periventricular deep white matter are nonspecific. A few punctate foci of susceptibility in the cerebellum and medulla are present. There are expanded perivascular spaces in the thalami. The midline structures are anatomic. There is only mild local mass effect on the fourth ventricle. The basal cisterns are patent. There is no abnormal extra axial collection. The flow void in the right PICA is absent. The globes and orbits are unremarkable. The paranasal sinuses and mastoid air cells are predominantly well aerated. IMPRESSION: 1. A late acute to early subacute infarct in the medial right cerebellar hemisphere is not associated with hemorrhage or significant mass effect or hemorrhage. There is either slow flow or occlusion in the right PICA. 2. Chronic microimages of the cerebral hemispheres and brainstem are likely related to prior hypertensive episodes. 3. Mild chronic small vessel ischemic disease is likely. The critical findings above were discussed with Dr. Eve Pyle at 10:46 AM on March 06, 2019. EKG Data: Monitor: NSR, PAC's. Assessment/Plan 68 yo with R cerebellar stroke, smoker, HTN, but etiology uncertain. S/p event monitor implant for cryptogenic stroke to evaluate for possible asymptomatic PAF. Low potassium noted, I recommend repletion, consider evaluation for secondary hypertension with low K+ w/o diuretics. Continue with plans of smoking cessation. BP labile, increased during procedure. BP goals/recommendations I defer to neurology. Follow up with Dr Bethea next week.
[2019-03-08] MEDS: Cephalexin CAP* 500 MG PO SCH ×2 (12:59→20:51)
--- NOTE | 2019-03-08 15:56 | PN ---
Subjective Date of Service: 03/08/19 Interval History: seen today post loop recorder implants. in good spirit denies any dizziness. he continue to have difficulty with ambulation and balance and we are waiting for placement Past Medical History: Unchanged from Admission Objective Active Medications: Acetaminophen (Tylenol Tab*) 650 mg PO Q4H PRN PRN Reason: FEVER/PAIN Last Admin: 03/07/19 19:00 Dose: 650 mg Aspirin (Aspirin 81 Mg Chew Tab*) 81 mg PO DAILY [facility] Last Admin: 03/08/19 08:18 Dose: 81 mg Cephalexin HCl (Keflex Cap*) 500 mg PO TID [facility] Last Admin: 03/08/19 12:59 Dose: 500 mg Clopidogrel Bisulfate (Plavix Tab*) 75 mg PO DAILY [facility] Last Admin: 03/08/19 08:18 Dose: 75 mg Diphenoxylate HCl/Atropine (Lomotil Tab*) 1 tab PO TID [facility] Last Admin: 03/08/19 12:59 Dose: 1 tab Famotidine (Pepcid Tab*) 20 mg PO BID [facility] Last Admin: 03/08/19 08:18 Dose: 20 mg Heparin Sodium (Porcine) (Heparin Vial(*)) 5,000 units SUBCUT Q8HR [facility] Last Admin: 03/08/19 12:59 Dose: 5,000 units Meclizine HCl (Antivert Tab*) 12.5 mg PO Q8HR PRN PRN Reason: DIZZINESS Last Admin: 03/04/19 21:00 Dose: 12.5 mg Nicotine Polacrilex (Nicotine Gum*) 2 mg PO Q2H PRN PRN Reason: CRAVING Nicotine Polacrilex (Nicotine Lozenge Mini) 2 mg MT Q2H PRN PRN Reason: CRAVING Ondansetron HCl (Zofran Inj*) 4 mg IV Q6H PRN PRN Reason: NAUSEA Last Admin: 03/07/19 20:11 Dose: 4 mg Vital Signs - 8 hr 03/08/19 03/08/19 03/08/19 08:00 08:18 10:51 Temperature Pulse Rate Respiratory 18 18 19 Rate Blood Pressure (mmHg) O2 Sat by Pulse Oximetry 03/08/19 03/08/19 03/08/19 11:20 11:23 11:26 Temperature 98.3 F Pulse Rate 45 Respiratory 19 Rate Blood Pressure 127/78 (mmHg) O2 Sat by Pulse 90 Oximetry 03/08/19 03/08/19 03/08/19 11:51 12:18 12:59 Temperature Pulse Rate Respiratory 20 Rate Blood Pressure 168/91 155/85 (mmHg) O2 Sat by Pulse Oximetry 03/08/19 03/08/19 03/08/19 13:15 14:35 15:12 Temperature 97.9 F 98.5 F Pulse Rate 96 104 Respiratory 18 18 18 Rate Blood Pressure 141/82 130/70 (mmHg) O2 Sat by Pulse 98 93 Oximetry Oxygen Devices in Use Now: None Appearance: awake, alert no distress Eyes: No Scleral Icterus Ears/Nose/Mouth/Throat: NL Teeth, Lips, Gums Neck: NL Appearance and Movements; NL JVP, Trachea Midline Respiratory: Symmetrical Chest Expansion and Respiratory Effort, Clear to Auscultation Cardiovascular: NL Sounds; No Murmurs; No JVD, - - anterior chest wall implantable recorder device Abdominal: NL Sounds; No Tenderness; No Distention Result Diagrams: 03/07/19 05:48 03/08/19 06:05 Microbiology and Other Data: Microbiology 03/04/19 02:50 Nasal Screen MRSA (PCR) - Final Nasal Mrsa Not Detected Assess/Plan/Problems-Billing Assessment: 68M, with hx of HTN here with bradycardia, vertigo, MRI shows Right cerebellar infarct. - Patient Problems (1) Stroke Current Visit: Yes Status: Acute Code(s): I63.9 - CEREBRAL INFARCTION, UNSPECIFIED SNOMED Code(s): 261209565 Comment: - Right cerebellar infarct - seen by Dr. Murcia for neurology consult - c/w asa, plavix, LDL < 70. - on tele : sinus bradycardia - Loop recorder today (2) Symptomatic sinus bradycardia Current Visit: Yes Status: Acute Code(s): R00.1 - BRADYCARDIA, UNSPECIFIED SNOMED Code(s): 037471912 Comment: - Sinus bradycardia- his vertigo sx now attributed to stroke. - Cardiology evaluated patient, at this point no pacemaker, patient was taking loperamide daily three times a day- which can cause bradycardia- d/w patient and loperamide d/c'ed started lomotil instead. - Lyme's titer negative. Loop recorder implanted today. follow up with Dr. cordova in one week from today (03/08/19) - Mg repleted 7/13, 03/08. (3) AAA (abdominal aortic aneurysm) Current Visit: Yes Status: Acute Code(s): I71.4 - ABDOMINAL AORTIC ANEURYSM , WITHOUT RUPTURE SNOMED Code(s): 493080965 Comment: - 4 cm ascending thoracic aortic aneurysm noted on CTA done at [facility]. unsure of baseline. - hx of HTN - repeat in 6 months and ouptatient follow up . will defer to PCP (4) DVT prophylaxis Current Visit: Yes Status: Acute Code(s): Z29.9 - ENCOUNTER FOR PROPHYLACTIC MEASURES, UNSPECIFIED SNOMED Code(s): 297703626 Comment: Heparin subQ
[2019-03-08] MEDS: Acetaminophen TAB* 325 MG PO PRN (19:55)
--- NOTE | 2019-03-08 23:23 | OP ---
CC: Dr. Jese Casillas; Dr. Erwin Bethea * DATE OF OPERATION: 03/08/19 - ROOM #444 DATE OF : 50 SURGEON: Gini Duval MD PRE-OP DIAGNOSIS: Cryptogenic stroke. POST-OP DIAGNOSIS: Cryptogenic stroke. OPERATIVE PROCEDURE: Event monitor implantation. ESTIMATED BLOOD LOSS: Less than 1 cc. COMPLICATIONS: None. DESCRIPTION OF PROCEDURE: The indications, risks, and benefits of the procedure had been discussed with Dr. Bethea the day prior to the procedure and again by myself on the day of the procedure. The patient was amenable to proceeding. The left fourth intercostal space was identified and marked with a pen. Following this, the left fourth intercostal space just lateral to the sternum was prepped and draped in the usual sterile fashion. A time-out was called. The patient received a total of 12 cc of 1% lidocaine for local anesthesia and just lateral to the sternum in the left fourth intercostal space angled 45 degrees inferior and laterally. Using a blade in the kit, a small santiago was fashioned in this region and using the device provided by the [employer] kit, a small tunnel was made inferior and laterally 45 degrees. Using the device in the kit, the event monitor was then pushed into the tunnel. Sensing was checked and found to be good. The small incision was closed with Steri-Strips and an external dressing. Hemostasis had been obtained with direct pressure. FINDINGS: The device is a [employer] Reveal LINQ TruRhythm, serial #[id number]. R waves are sensed at 0.35 millivolts. Programming set for tachy detection at 440 milliseconds (136 beats per minute) for 16 beats more or faster and for bradyarrhythmias at 30 beats a minute for 4 beats or longer or pauses of 3 seconds or longer. CONCLUSION: Successful event monitor implantation without complications. Estimated blood loss less than 1 cc. [id number]/CPS #: [id number] [facility]
[2019-03-09] MEDS: Acetaminophen TAB* 325 MG PO PRN ×2 (00:39→14:45)
[2019-03-09] MEDS: Heparin VIAL(*) 5000 UNITS/ML VIAL (FIVE THOUSAND) SUBCUT SCH ×3 (05:50→20:17)
[2019-03-09 06:53] LABS: Calcium 8.6 mg/dL (8.6-10.3); Magnesium 2.1 mg/dL (1.9-2.7)
[2019-03-09 06:59] LABS: BUN/Creatinine Ratio 14.3 (8-20); EGFR Non-African American 90.9 (>60)
[2019-03-09 08:04] LABS: Potassium 3.7 mmol/L (3.5-5.0)
[2019-03-09] MEDS ORDERED: Potassium Chlor TAB* 20 MEQ TAB.ER PO ONE (08:23)
[2019-03-09] MEDS: Diphenoxylat/Atrop 2.5-0.025M* 1 TAB PO SCH ×3 (09:17→20:16)
[2019-03-09] MEDS: Clopidogrel TAB* 75 MG PO SCH (09:17)
[2019-03-09] MEDS: Cephalexin CAP* 500 MG PO SCH ×3 (09:17→20:16)
[2019-03-09] MEDS: Famotidine TAB* 20 MG PO SCH ×2 (09:17→20:17)
[2019-03-09] MEDS: Aspirin 81 mg CHEW TAB* 81 MG TAB.CHEW PO SCH (09:18)
--- NOTE | 2019-03-09 14:23 | PN ---
Subjective Date of Service: 03/09/19 Interval History: Patient seen today, No distress, awake, alert. awaiting placement. Past Medical History: Unchanged from Admission Objective Active Medications: Acetaminophen (Tylenol Tab*) 650 mg PO Q4H PRN PRN Reason: FEVER/PAIN Last Admin: 03/09/19 00:39 Dose: 650 mg Aspirin (Aspirin 81 Mg Chew Tab*) 81 mg PO DAILY [facility] Last Admin: 03/09/19 09:18 Dose: 81 mg Cephalexin HCl (Keflex Cap*) 500 mg PO TID [facility] Last Admin: 03/09/19 13:41 Dose: 500 mg Clopidogrel Bisulfate (Plavix Tab*) 75 mg PO DAILY [facility] Last Admin: 03/09/19 09:17 Dose: 75 mg Diphenoxylate HCl/Atropine (Lomotil Tab*) 1 tab PO TID [facility] Last Admin: 03/09/19 13:42 Dose: 1 tab Famotidine (Pepcid Tab*) 20 mg PO BID [facility] Last Admin: 03/09/19 09:17 Dose: 20 mg Heparin Sodium (Porcine) (Heparin Vial(*)) 5,000 units SUBCUT Q8HR [facility] Last Admin: 03/09/19 13:42 Dose: 5,000 units Meclizine HCl (Antivert Tab*) 12.5 mg PO Q8HR PRN PRN Reason: DIZZINESS Last Admin: 03/04/19 21:00 Dose: 12.5 mg Nicotine Polacrilex (Nicotine Gum*) 2 mg PO Q2H PRN PRN Reason: CRAVING Nicotine Polacrilex (Nicotine Lozenge Mini) 2 mg MT Q2H PRN PRN Reason: CRAVING Ondansetron HCl (Zofran Inj*) 4 mg IV Q6H PRN PRN Reason: NAUSEA Last Admin: 03/07/19 20:11 Dose: 4 mg Vital Signs - 8 hr 03/09/19 03/09/19 03/09/19 08:00 09:17 11:25 Temperature 97.2 F 98.1 F Pulse Rate 43 92 Respiratory 18 18 16 Rate Blood Pressure 139/60 156/70 (mmHg) O2 Sat by Pulse 95 98 Oximetry 03/09/19 13:42 Temperature Pulse Rate Respiratory 18 Rate Blood Pressure (mmHg) O2 Sat by Pulse Oximetry Oxygen Devices in Use Now: None Appearance: awake, alert. resting no pain. Eyes: No Scleral Icterus Ears/Nose/Mouth/Throat: NL Teeth, Lips, Gums, Mucous Membranes Moist Neck: NL Appearance and Movements; NL JVP, Trachea Midline Respiratory: Clear to Auscultation Cardiovascular: NL Sounds; No Murmurs; No JVD, No Edema Abdominal: NL Sounds; No Tenderness; No Distention Skin: No Rash or Ulcers Neurological: Alert and Oriented x 3 Result Diagrams: 03/07/19 05:48 03/09/19 05:49 Microbiology and Other Data: Microbiology 03/04/19 02:50 Nasal Screen MRSA (PCR) - Final Nasal Mrsa Not Detected Assess/Plan/Problems-Billing Assessment: 68M, with hx of HTN here with bradycardia, vertigo, MRI shows Right cerebellar infarct. - Patient Problems (1) Stroke Current Visit: Yes Status: Acute Code(s): I63.9 - CEREBRAL INFARCTION, UNSPECIFIED SNOMED Code(s): 860362019 Comment: - Right cerebellar infarct - seen by Dr. Murcia for neurology consult - c/w asa, plavix, LDL < 70. - on tele : sinus bradycardia - s/p Loop recorder 03/08/[address] Duval follow up with Dr. cordova in one week (2) Symptomatic sinus bradycardia Current Visit: Yes Status: Acute Code(s): R00.1 - BRADYCARDIA, UNSPECIFIED SNOMED Code(s): 569486606 Comment: - Sinus bradycardia- his vertigo sx now attributed to stroke. - Cardiology evaluated patient, at this point no pacemaker, patient was taking loperamide daily three times a day- which can cause bradycardia- d/w patient and loperamide d/c'ed started lomotil instead. - Lyme's titer negative. Loop recorder implanted 03/08/19 . follow up with Dr. Cordova in one week from today (03/08/19) - Mg repleted 03/04, 03/08. (3) AAA (abdominal aortic aneurysm) Current Visit: Yes Status: Acute Code(s): I71.4 - ABDOMINAL AORTIC ANEURYSM , WITHOUT RUPTURE SNOMED Code(s): 188476094 Comment: - 4 cm ascending thoracic aortic aneurysm noted on CTA done at [facility]. unsure of baseline. - hx of HTN - repeat in 6 months and ouptatient follow up . will defer to PCP (4) DVT prophylaxis Current Visit: Yes Status: Acute Code(s): Z29.9 - ENCOUNTER FOR PROPHYLACTIC MEASURES, UNSPECIFIED SNOMED Code(s): 541171272 Comment: Heparin subQ
[2019-03-10] MEDS: Heparin VIAL(*) 5000 UNITS/ML VIAL (FIVE THOUSAND) SUBCUT SCH ×3 (05:18→21:19)
[2019-03-10] MEDS: Clopidogrel TAB* 75 MG PO SCH (08:20)
[2019-03-10] MEDS: Aspirin 81 mg CHEW TAB* 81 MG TAB.CHEW PO SCH (08:20)
[2019-03-10] MEDS: Diphenoxylat/Atrop 2.5-0.025M* 1 TAB PO SCH ×3 (08:20→21:18)
[2019-03-10] MEDS: Famotidine TAB* 20 MG PO SCH ×2 (08:21→21:18)
[2019-03-10] MEDS: Cephalexin CAP* 500 MG PO SCH ×3 (08:21→21:24)
[2019-03-10] MEDS: Acetaminophen TAB* 325 MG PO PRN ×2 (09:38→19:05)
--- NOTE | 2019-03-10 16:22 | PN ---
Subjective Date of Service: 03/10/19 Interval History: patient seen today, remains stable. no acute events. unfortunately we are still awaiting prior auth approval for the short term rehab placement. Past Medical History: Unchanged from Admission Objective Active Medications: Acetaminophen (Tylenol Tab*) 650 mg PO Q4H PRN PRN Reason: FEVER/PAIN Last Admin: 03/10/19 09:38 Dose: 650 mg Aspirin (Aspirin 81 Mg Chew Tab*) 81 mg PO DAILY [facility] Last Admin: 03/10/19 08:20 Dose: 81 mg Cephalexin HCl (Keflex Cap*) 500 mg PO TID [facility] Last Admin: 03/10/19 13:42 Dose: 500 mg Clopidogrel Bisulfate (Plavix Tab*) 75 mg PO DAILY [facility] Last Admin: 03/10/19 08:20 Dose: 75 mg Diphenoxylate HCl/Atropine (Lomotil Tab*) 1 tab PO TID [facility] Last Admin: 03/10/19 13:41 Dose: 1 tab Famotidine (Pepcid Tab*) 20 mg PO BID [facility] Last Admin: 03/10/19 08:21 Dose: 20 mg Heparin Sodium (Porcine) (Heparin Vial(*)) 5,000 units SUBCUT Q8HR [facility] Last Admin: 03/10/19 13:41 Dose: 5,000 units Meclizine HCl (Antivert Tab*) 12.5 mg PO Q8HR PRN PRN Reason: DIZZINESS Last Admin: 03/04/19 21:00 Dose: 12.5 mg Nicotine Polacrilex (Nicotine Gum*) 2 mg PO Q2H PRN PRN Reason: CRAVING Nicotine Polacrilex (Nicotine Lozenge Mini) 2 mg MT Q2H PRN PRN Reason: CRAVING Ondansetron HCl (Zofran Inj*) 4 mg IV Q6H PRN PRN Reason: NAUSEA Last Admin: 03/07/19 20:11 Dose: 4 mg Vital Signs - 8 hr 03/10/19 03/10/19 12:00 13:41 Temperature 97.3 F Pulse Rate 47 Respiratory 16 16 Rate Blood Pressure 146/66 (mmHg) O2 Sat by Pulse 98 Oximetry Oxygen Devices in Use Now: None Appearance: awake, alert. no distress Ears/Nose/Mouth/Throat: NL Teeth, Lips, Gums, Mucous Membranes Moist Neck: NL Appearance and Movements; NL JVP Respiratory: Symmetrical Chest Expansion and Respiratory Effort, Clear to Auscultation Cardiovascular: NL Sounds; No Murmurs; No JVD, No Edema Abdominal: NL Sounds; No Tenderness; No Distention Extremities: No Edema Result Diagrams: 03/07/19 05:48 03/09/19 05:49 Microbiology and Other Data: Microbiology 03/04/19 02:50 Nasal Screen MRSA (PCR) - Final Nasal Mrsa Not Detected Assess/Plan/Problems-Billing Assessment: 68M, with hx of HTN here with bradycardia, vertigo, MRI shows Right cerebellar infarct. - Patient Problems (1) Stroke Current Visit: Yes Status: Acute Code(s): I63.9 - CEREBRAL INFARCTION, UNSPECIFIED SNOMED Code(s): 124642988 Comment: - Right cerebellar infarct - seen by Dr. Murcia for neurology consult - c/w asa, plavix, LDL < 70. - on tele : sinus bradycardia - s/p Loop recorder 03/08/[address] Duval follow up with Dr. cordova in one week - Awaiting placement for STR (2) Symptomatic sinus bradycardia Current Visit: Yes Status: Acute Code(s): R00.1 - BRADYCARDIA, UNSPECIFIED SNOMED Code(s): 318594374 Comment: - Sinus bradycardia- his vertigo sx now attributed to stroke. - Cardiology evaluated patient, at this point no pacemaker, patient was taking loperamide daily three times a day- which can cause bradycardia- d/w patient and loperamide d/c'ed started lomotil instead. - Lyme's titer negative. Loop recorder implanted 03/08/19 . follow up with Dr. Cordova in one week from today (03/08/19) - Mg repleted 03/04, 03/08. (3) AAA (abdominal aortic aneurysm) Current Visit: Yes Status: Acute Code(s): I71.4 - ABDOMINAL AORTIC ANEURYSM , WITHOUT RUPTURE SNOMED Code(s): 412055468 Comment: - 4 cm ascending thoracic aortic aneurysm noted on CTA done at [facility]. unsure of baseline. - hx of HTN - repeat in 6 months and ouptatient follow up . will defer to PCP (4) DVT prophylaxis Current Visit: Yes Status: Acute Code(s): Z29.9 - ENCOUNTER FOR PROPHYLACTIC MEASURES, UNSPECIFIED SNOMED Code(s): 783369003 Comment: Heparin subQ
[2019-03-11] MEDS: Heparin VIAL(*) 5000 UNITS/ML VIAL (FIVE THOUSAND) SUBCUT SCH ×3 (05:27→22:19)
[2019-03-11] MEDS: Aspirin 81 mg CHEW TAB* 81 MG TAB.CHEW PO SCH (08:48)
[2019-03-11] MEDS: Acetaminophen TAB* 325 MG PO PRN ×4 (08:48→23:48)
[2019-03-11] MEDS: Diphenoxylat/Atrop 2.5-0.025M* 1 TAB PO SCH ×3 (08:48→19:43)
[2019-03-11] MEDS: Clopidogrel TAB* 75 MG PO SCH (08:49)
[2019-03-11] MEDS: Cephalexin CAP* 500 MG PO SCH ×3 (08:49→19:43)
[2019-03-11] MEDS: Famotidine TAB* 20 MG PO SCH ×2 (08:49→19:43)
--- NOTE | 2019-03-11 14:38 | PN ---
Subjective Date of Service: 03/11/19 Interval History: patient seen sitting in his chair. no acute distress. awaiting bed placement Past Medical History: Unchanged from Admission Objective Active Medications: Acetaminophen (Tylenol Tab*) 650 mg PO Q4H PRN PRN Reason: FEVER/PAIN Last Admin: 03/11/19 13:11 Dose: 650 mg Aspirin (Aspirin 81 Mg Chew Tab*) 81 mg PO DAILY [facility] Last Admin: 03/11/19 08:48 Dose: 81 mg Cephalexin HCl (Keflex Cap*) 500 mg PO TID [facility] Last Admin: 03/11/19 14:32 Dose: 500 mg Clopidogrel Bisulfate (Plavix Tab*) 75 mg PO DAILY [facility] Last Admin: 03/11/19 08:49 Dose: 75 mg Diphenoxylate HCl/Atropine (Lomotil Tab*) 1 tab PO TID [facility] Last Admin: 03/11/19 14:31 Dose: 1 tab Famotidine (Pepcid Tab*) 20 mg PO BID [facility] Last Admin: 03/11/19 08:49 Dose: 20 mg Heparin Sodium (Porcine) (Heparin Vial(*)) 5,000 units SUBCUT Q8HR [facility] Last Admin: 03/11/19 14:32 Dose: 5,000 units Meclizine HCl (Antivert Tab*) 12.5 mg PO Q8HR PRN PRN Reason: DIZZINESS Last Admin: 03/04/19 21:00 Dose: 12.5 mg Nicotine Polacrilex (Nicotine Gum*) 2 mg PO Q2H PRN PRN Reason: CRAVING Nicotine Polacrilex (Nicotine Lozenge Mini) 2 mg MT Q2H PRN PRN Reason: CRAVING Ondansetron HCl (Zofran Inj*) 4 mg IV Q6H PRN PRN Reason: NAUSEA Last Admin: 03/07/19 20:11 Dose: 4 mg Vital Signs - 8 hr 03/11/19 03/11/19 03/11/19 08:00 08:48 14:31 Temperature 98.2 F Pulse Rate 54 Respiratory 18 16 16 Rate Blood Pressure 154/73 (mmHg) O2 Sat by Pulse 96 Oximetry Oxygen Devices in Use Now: None Appearance: supple. no jvd Eyes: No Scleral Icterus Ears/Nose/Mouth/Throat: NL Teeth, Lips, Gums, Mucous Membranes Moist Neck: NL Appearance and Movements; NL JVP, Trachea Midline Respiratory: Symmetrical Chest Expansion and Respiratory Effort, Clear to Auscultation Cardiovascular: NL Sounds; No Murmurs; No JVD Abdominal: NL Sounds; No Tenderness; No Distention Extremities: No Edema Skin: No Rash or Ulcers Neurological: Alert and Oriented x 3 Result Diagrams: 03/07/19 05:48 03/09/19 05:49 Microbiology and Other Data: Microbiology 03/04/19 02:50 Nasal Screen MRSA (PCR) - Final Nasal Mrsa Not Detected Assess/Plan/Problems-Billing Assessment: 68M, with hx of HTN here with bradycardia, vertigo, MRI shows Right cerebellar infarct. - Patient Problems (1) Stroke Current Visit: Yes Status: Acute Code(s): I63.9 - CEREBRAL INFARCTION, UNSPECIFIED SNOMED Code(s): 944904649 Comment: - Right cerebellar infarct - seen by Dr. Murcia for neurology consult - c/w asa, plavix, LDL < 70. - on tele : sinus bradycardia. discontinued - s/p Loop recorder 03/08/[address] Duval follow up with Dr. cordova in one week ~ 03/16/19 - Awaiting placement for STR (2) Symptomatic sinus bradycardia Current Visit: Yes Status: Acute Code(s): R00.1 - BRADYCARDIA, UNSPECIFIED SNOMED Code(s): 706869889 Comment: - Sinus bradycardia- his vertigo sx now attributed to stroke. - Cardiology evaluated patient, at this point no pacemaker, patient was taking loperamide daily three times a day- which can cause bradycardia- d/w patient and loperamide d/c'ed started lomotil instead. - Lyme's titer negative. Loop recorder implanted 03/08/19 . follow up with Dr. Cordova in one week from today (03/08/19) - Mg repleted 03/04, 03/08. (3) AAA (abdominal aortic aneurysm) Current Visit: Yes Status: Acute Code(s): I71.4 - ABDOMINAL AORTIC ANEURYSM , WITHOUT RUPTURE SNOMED Code(s): 114593810 Comment: - 4 cm ascending thoracic aortic aneurysm noted on CTA done at [facility]. unsure of baseline. - hx of HTN - repeat in 6 months and ouptatient follow up . will defer to PCP (4) DVT prophylaxis Current Visit: Yes Status: Acute Code(s): Z29.9 - ENCOUNTER FOR PROPHYLACTIC MEASURES, UNSPECIFIED SNOMED Code(s): 514625633 Comment: Heparin subQ
[2019-03-12] MEDS: Heparin VIAL(*) 5000 UNITS/ML VIAL (FIVE THOUSAND) SUBCUT SCH ×3 (06:41→22:01)
[2019-03-12] MEDS: Acetaminophen TAB* 325 MG PO PRN ×2 (06:45→20:18)
[2019-03-12] MEDS: Aspirin 81 mg CHEW TAB* 81 MG TAB.CHEW PO SCH (08:55)
[2019-03-12] MEDS: Diphenoxylat/Atrop 2.5-0.025M* 1 TAB PO SCH ×3 (08:55→20:18)
[2019-03-12] MEDS: Famotidine TAB* 20 MG PO SCH ×2 (08:55→20:18)
[2019-03-12] MEDS: Cephalexin CAP* 500 MG PO SCH ×3 (08:55→20:18)
[2019-03-12] MEDS: Clopidogrel TAB* 75 MG PO SCH (08:55)
--- NOTE | 2019-03-12 15:43 | PN ---
Subjective Past Medical History: Unchanged from Admission Objective Active Medications: Acetaminophen (Tylenol Tab*) 650 mg PO Q4H PRN PRN Reason: FEVER/PAIN Last Admin: 03/12/19 06:45 Dose: 650 mg Aspirin (Aspirin 81 Mg Chew Tab*) 81 mg PO DAILY [facility] Last Admin: 03/12/19 08:55 Dose: 81 mg Cephalexin HCl (Keflex Cap*) 500 mg PO TID [facility] Last Admin: 03/12/19 13:56 Dose: 500 mg Clopidogrel Bisulfate (Plavix Tab*) 75 mg PO DAILY [facility] Last Admin: 03/12/19 08:55 Dose: 75 mg Diphenoxylate HCl/Atropine (Lomotil Tab*) 1 tab PO TID [facility] Last Admin: 03/12/19 13:56 Dose: 1 tab Famotidine (Pepcid Tab*) 20 mg PO BID [facility] Last Admin: 03/12/19 08:55 Dose: 20 mg Heparin Sodium (Porcine) (Heparin Vial(*)) 5,000 units SUBCUT Q8HR [facility] Last Admin: 03/12/19 13:56 Dose: 5,000 units Meclizine HCl (Antivert Tab*) 12.5 mg PO Q8HR PRN PRN Reason: DIZZINESS Last Admin: 03/04/19 21:00 Dose: 12.5 mg Nicotine Polacrilex (Nicotine Gum*) 2 mg PO Q2H PRN PRN Reason: CRAVING Nicotine Polacrilex (Nicotine Lozenge Mini) 2 mg MT Q2H PRN PRN Reason: CRAVING Ondansetron HCl (Zofran Inj*) 4 mg IV Q6H PRN PRN Reason: NAUSEA Last Admin: 03/07/19 20:11 Dose: 4 mg Vital Signs - 8 hr 03/12/19 03/12/19 03/12/19 07:58 08:00 08:55 Temperature 97.9 F Pulse Rate 85 Respiratory 20 20 16 Rate Blood Pressure 157/86 (mmHg) O2 Sat by Pulse 95 Oximetry 03/12/19 03/12/19 03/12/19 11:35 11:50 12:58 Temperature 98.3 F 97.7 F Pulse Rate 86 50 Respiratory 20 20 20 Rate Blood Pressure 130/84 149/91 (mmHg) O2 Sat by Pulse 93 99 Oximetry 03/12/19 03/12/19 13:56 15:06 Temperature 97.5 F Pulse Rate 53 Respiratory 20 17 Rate Blood Pressure 140/57 (mmHg) O2 Sat by Pulse 92 Oximetry Oxygen Devices in Use Now: None Result Diagrams: 03/07/19 05:48 03/09/19 05:49 Microbiology and Other Data: Microbiology 03/04/19 02:50 Nasal Screen MRSA (PCR) - Final Nasal Mrsa Not Detected Assess/Plan/Problems-Billing Assessment: 68M, with hx of HTN here with bradycardia, vertigo, MRI shows Right cerebellar infarct. - Patient Problems (1) Stroke Current Visit: Yes Status: Acute Code(s): I63.9 - CEREBRAL INFARCTION, UNSPECIFIED SNOMED Code(s): 508020265 Comment: - Right cerebellar infarct - seen by Dr. Murcia for neurology consult - c/w asa, plavix, LDL < 70. - on tele : sinus bradycardia. discontinued - s/p Loop recorder 03/08/[address] Duval follow up with Dr. cordova in one week ~ 03/16/19 - Awaiting placement for STR (2) Symptomatic sinus bradycardia Current Visit: Yes Status: Acute Code(s): R00.1 - BRADYCARDIA, UNSPECIFIED SNOMED Code(s): 749071412 Comment: - Sinus bradycardia- his vertigo sx now attributed to stroke. - Cardiology evaluated patient, at this point no pacemaker, patient was taking loperamide daily three times a day- which can cause bradycardia- d/w patient and loperamide d/c'ed started lomotil instead. - Lyme's titer negative. Loop recorder implanted 03/08/19 . follow up with Dr. Cordova in one week from today (03/08/19) - Mg repleted 03/04, 03/08. (3) AAA (abdominal aortic aneurysm) Current Visit: Yes Status: Acute Code(s): I71.4 - ABDOMINAL AORTIC ANEURYSM , WITHOUT RUPTURE SNOMED Code(s): 567944074 Comment: - 4 cm ascending thoracic aortic aneurysm noted on CTA done at [facility]. unsure of baseline. - hx of HTN - repeat in 6 months and ouptatient follow up . will defer to PCP (4) DVT prophylaxis Current Visit: Yes Status: Acute Code(s): Z29.9 - ENCOUNTER FOR PROPHYLACTIC MEASURES, UNSPECIFIED SNOMED Code(s): 750454636 Comment: Heparin subQ
--- NOTE | 2019-03-12 18:58 | PN ---
Subjective Date of Service: 03/12/19 Interval History: awake, alert. no distress. resting comfortably. Eager to have bed for rehab. Still awaiting prior auth from his insurance Past Medical History: Unchanged from Admission Objective Active Medications: Acetaminophen (Tylenol Tab*) 650 mg PO Q4H PRN PRN Reason: FEVER/PAIN Last Admin: 03/12/19 06:45 Dose: 650 mg Aspirin (Aspirin 81 Mg Chew Tab*) 81 mg PO DAILY [facility] Last Admin: 03/12/19 08:55 Dose: 81 mg Cephalexin HCl (Keflex Cap*) 500 mg PO TID [facility] Last Admin: 03/12/19 13:56 Dose: 500 mg Clopidogrel Bisulfate (Plavix Tab*) 75 mg PO DAILY [facility] Last Admin: 03/12/19 08:55 Dose: 75 mg Diphenoxylate HCl/Atropine (Lomotil Tab*) 1 tab PO TID [facility] Last Admin: 03/12/19 13:56 Dose: 1 tab Famotidine (Pepcid Tab*) 20 mg PO BID [facility] Last Admin: 03/12/19 08:55 Dose: 20 mg Heparin Sodium (Porcine) (Heparin Vial(*)) 5,000 units SUBCUT Q8HR [facility] Last Admin: 03/12/19 13:56 Dose: 5,000 units Meclizine HCl (Antivert Tab*) 12.5 mg PO Q8HR PRN PRN Reason: DIZZINESS Last Admin: 03/04/19 21:00 Dose: 12.5 mg Nicotine Polacrilex (Nicotine Gum*) 2 mg PO Q2H PRN PRN Reason: CRAVING Nicotine Polacrilex (Nicotine Lozenge Mini) 2 mg MT Q2H PRN PRN Reason: CRAVING Ondansetron HCl (Zofran Inj*) 4 mg IV Q6H PRN PRN Reason: NAUSEA Last Admin: 03/07/19 20:11 Dose: 4 mg Vital Signs - 8 hr 03/12/19 03/12/19 03/12/19 11:35 11:50 12:58 Temperature 98.3 F 97.7 F Pulse Rate 86 50 Respiratory 20 20 20 Rate Blood Pressure 130/84 149/91 (mmHg) O2 Sat by Pulse 93 99 Oximetry 03/12/19 03/12/19 03/12/19 13:56 15:06 16:15 Temperature 97.5 F Pulse Rate 53 Respiratory 20 17 20 Rate Blood Pressure 140/57 (mmHg) O2 Sat by Pulse 92 Oximetry Oxygen Devices in Use Now: None Appearance: awake, alert no distress Ears/Nose/Mouth/Throat: NL Teeth, Lips, Gums, Mucous Membranes Moist Neck: NL Appearance and Movements; NL JVP, Trachea Midline Respiratory: Symmetrical Chest Expansion and Respiratory Effort, Clear to Auscultation Cardiovascular: NL Sounds; No Murmurs; No JVD, No Edema Neurological: Alert and Oriented x 3 Result Diagrams: 03/07/19 05:48 03/09/19 05:49 Microbiology and Other Data: Microbiology 03/04/19 02:50 Nasal Screen MRSA (PCR) - Final Nasal Mrsa Not Detected Assess/Plan/Problems-Billing Assessment: 68M, with hx of HTN here with bradycardia, vertigo, MRI shows Right cerebellar infarct. - Patient Problems (1) Stroke Current Visit: Yes Status: Acute Code(s): I63.9 - CEREBRAL INFARCTION, UNSPECIFIED SNOMED Code(s): 779645905 Comment: - Right cerebellar infarct - seen by Dr. Murcia for neurology consult - c/w asa, plavix, LDL < 70. - on tele : sinus bradycardia. discontinued - s/p Loop recorder 03/08/[address] Duval follow up with Dr. cordova in one week ~ 03/16/19 - Awaiting placement for STR (2) Symptomatic sinus bradycardia Current Visit: Yes Status: Acute Code(s): R00.1 - BRADYCARDIA, UNSPECIFIED SNOMED Code(s): 601497507 Comment: - Sinus bradycardia- his vertigo sx now attributed to stroke. - Cardiology evaluated patient, at this point no pacemaker, patient was taking loperamide daily three times a day- which can cause bradycardia- d/w patient and loperamide d/c'ed started lomotil instead. - Lyme's titer negative. Loop recorder implanted 03/08/19 . follow up with Dr. Cordova in one week from today (03/08/19) - Mg repleted 03/04, 03/08. (3) AAA (abdominal aortic aneurysm) Current Visit: Yes Status: Acute Code(s): I71.4 - ABDOMINAL AORTIC ANEURYSM , WITHOUT RUPTURE SNOMED Code(s): 971427134 Comment: - 4 cm ascending thoracic aortic aneurysm noted on CTA done at [facility]. unsure of baseline. - hx of HTN - repeat in 6 months and ouptatient follow up . will defer to PCP (4) DVT prophylaxis Current Visit: Yes Status: Acute Code(s): Z29.9 - ENCOUNTER FOR PROPHYLACTIC MEASURES, UNSPECIFIED SNOMED Code(s): 318669445 Comment: Heparin subQ
[2019-03-13] MEDS: Heparin VIAL(*) 5000 UNITS/ML VIAL (FIVE THOUSAND) SUBCUT SCH (05:42)
[2019-03-13] MEDS: Famotidine TAB* 20 MG PO SCH (09:15)
[2019-03-13] MEDS: Clopidogrel TAB* 75 MG PO SCH (09:15)
[2019-03-13] MEDS: Diphenoxylat/Atrop 2.5-0.025M* 1 TAB PO SCH (09:15)
[2019-03-13] MEDS: Aspirin 81 mg CHEW TAB* 81 MG TAB.CHEW PO SCH (09:15)
--- NOTE | 2019-03-13 11:12 | DS ---
CC: Jese Casillas DO; Dr. Erwin Bethea; Dr. Brian Murcia * DISCHARGE SUMMARY: DATE OF ADMISSION: 03/04/19 DATE OF DISCHARGE: 03/13/19 PRIMARY CARE PROVIDER: Jese Casillas DO. ATTENDING PHYSICIAN: Pia Adam MD * (dictated by Stefanie Jerry NP). PRIMARY DIAGNOSES: 1. Right cerebellar cerebrovascular disease. 2. Symptomatic bradycardia. 3. Abdominal aortic aneurysm. SECONDARY DIAGNOSES: 1. Hypertension. 2. Crohn disease. 3. Deep venous thrombosis. STUDIES WHILE IN THE HOSPITAL: 1. EKG on 03/04/19 shows sinus bradycardia with a rate of 41, QTc 433, and no ischemic changes. 2. Head CTA on 03/04/19 reads as negative for central intracranial large- vessel stenosis or occlusion. 3. Transthoracic echocardiogram on 03/05/19 reads as the left ventricular cavity size is normal. Wall thickness is moderately increased. Systolic function is normal. The estimated ejection fraction is 55% to 60%. Wall motion is normal. There are no regional wall motion abnormalities. The left atrium is severely dilated. The right atrium is moderately to severely dilated. Findings are consistent with mild mitral stenosis. The ascending aorta is mildly dilated. There is no prior echocardiogram to compare. 4. Transthoracic echocardiogram on 03/06/19 reads as a PFO is not demonstrated by agitated saline contrast. Negative bubble study. Full transthoracic echocardiogram done on 03/05/19. 5. Brain MRI on 03/06/19 reads as a late acute to early subacute infarct in the medial right cerebellar hemisphere is not associated with significant mass effect or hemorrhage. There is either slow flow or occlusion in the right PICA. Chronic microimages of the cerebral hemispheres and brainstem are likely related to prior hypertensive episodes. Mild chronic small-vessel ischemic disease is likely. CONSULTATIONS WHILE IN THE HOSPITAL: 1. Dr. Bethea from cardiology on 03/04/19. 2. Dr. Murcia from neurology on 03/06/19. PROCEDURES WHILE IN THE HOSPITAL: Loop recorder implant on 03/08/19. HISTORY OF PRESENT ILLNESS AND HOSPITAL COURSE: Mr. Spicer is a 68-year-old male with past medical history of hypertension, Crohn disease, and DVT who presented to the emergency room on 03/04/19 with complaints of dizziness. Please see the history and physical by Dr. Grewal for complete summary of the events leading up to his hospitalization. In short, the patient woke with sudden-onset dizziness and a near syncopal event. Later in the morning, his daughter went to check on him and found him to be clammy, and minimally responsive. She called EMS and was brought to the [facility]. In the emergency room there, he was noted to have symptomatic bradycardia and so he was transferred to [facility] Emergency Room for cardiology consultation. In the emergency room, the patient had imaging as noted above. Lab work was essentially unremarkable. Lowest heart rate documented was 38 beats per minute. Reportedly, the patient also has some left - sided facial drooping, which was resolved and so further imaging was completed as noted above. He was admitted by the hospitalist service. The patient was seen by Dr. Bethea from cardiology, who did not feel as though a pacemaker is needed at this time. He did feel as though the bradycardia may be related to clonidine that the patient received the day prior. Due to the findings of acute to subacute infarct on MRI, the patient was seen by Dr. Murcia from cardiology, who recommended smoking cessation, dual antiplatelet therapy for 30 days with transition to single antiplatelet therapy thereafter, and a loop recorder implant. Heart rate has continued to improve and lowest documented heart rate in the last 2 days was noted to be 45. The patient does complain of occasional dizziness when standing, though he notes that as long as he stands still this resolves in less than 1 minute. Of note, the patient did have a loop recorder placed on 02/26/[address] Duval, the device is a [employer] Reveal LINQ TruRhythm. There were no surgical complications and the patient completed a course of cephalexin post procedure. The patient was taken off Imodium due to cardiogenic concerns and was started on Lomotil. On imaging , he was noted to have an abdominal aortic aneurysm, for which he is asymptomatic at this point. PHYSICAL EXAMINATION: On exam today, the patient reports feeling well. He offers no complaints. He is anxious to go to rehab as this will be close to home for him. On exam, he has no focal neurological deficits. His heart has a regular rate and rhythm without murmurs, rubs, or gallops. His lungs are clear to auscultation without rhonchi, wheezes, or rubs. There is no edema. Physical assessment is, otherwise, benign. Mr. Spicer is stable for discharge today. Vital signs are follows: Temp 98.4, heart rate 48, respiratory rate 18, oxygen saturation 93% on room air, blood pressure 161/87. DISCHARGE MEDICATIONS: New Medications: 1. Acetaminophen 650 mg p.o. q.4 hours p.r.n. for pain. 2. Aspirin 81 mg p.o. daily. 3. Plavix 75 mg p.o. daily. 4. Lomotil 2.5 mg/0.025 mg 1 tab p.o. t.i.d. 5. Famotidine 20 mg p.o. b.i.d. 6. Meclizine 12.5 mg p.o. q.8 hours p.r.n. for dizziness. 7. Nicotine gum 2 mg p.o. q.2 hours p.r.n. for craving. Continued Medications: 1. Amlodipine 5 mg p.o. daily. 2. Lisinopril 2 mg p.o. daily. Discontinued Medications: 1. Ibuprofen. 2. Imodium. DISCHARGE PLAN: Mr. Spicer will be discharged to [facility]. Activity will be as tolerated. Diet will be heart healthy. Medications are noted above. Again, the patient will be on dual antiplatelet therapy for a total of 30 days. The patient can discontinue the Plavix on 04/06/19 and at that point, continue aspirin alone. Additionally, he has been taken off Imodium and placed on Lomotil instead and should not take any ibuprofen due to negative cardiogenic effects. At this point, he has minimal dizziness, but can take meclizine as needed. Again, the patient did have a loop recorder implanted on 03/08/19 and will need to follow up with Dr. Bethea this week. He was noted to have an abdominal aortic aneurysm on CTA, this was noted to be 4 cm and should have repeat imaging in 6 months. He should additionally follow up with nephrology. Neurology has also recommended maintaining an LDL of less than 70 and at this point, the patient's LDL was 69, so there is no need for a statin at this time, though he should likely have a lipid panel rechecked in the near future to ensure he remains at goal. He should follow up with a provider at [facility] and can thereafter continue following up with his regular PCP. He should return to the emergency room or nearest hospital for any worsening of symptoms, shortness of breath, lightheadedness, dizziness, chest discomfort, high fevers, chills, night sweats, loss of consciousness, or new worrisome signs or symptoms. DISCHARGE CONDITION: Stable. DISCHARGE DISPOSITION: Subacute rehab, [facility]. This is a summarized report of a complex medical history and hospital stay. For further details, please see the entire medical record. TIME SPENT: Approximately 45 minutes were spent on this discharge. STEFANIE JERRY, SHEET METAL CONTRACTOR [id number]/CPS #: [id number] BOGDAN
[2019-03-13 11:20] VITALS: BP 165/94
== END 2019-03-13 12:00 | disposition swing bed (61) | DRG 45 ==
LOC: ICU 03-04 02:35 → MEDTELE 03-04 12:12 → SSU 03-12 11:58
PROVIDERS: ADMIT Internal Medicine; ATTEND Internal Medicine
PROC: 0JH602Z Insertion of Monitoring Device into Chest Subcutaneous Tissue and Fascia, Open Approach (ICD-10-PCS; principal; 2019-03-08 13:00)
DX: I63.9 Cerebral infarction, unspecified (principal); K50.90 Crohn's disease, unspecified, without complications; I10 Essential (primary) hypertension; R00.1 Bradycardia, unspecified; R29.810 Facial weakness; D72.829 Elevated white blood cell count, unspecified; I05.0 Rheumatic mitral stenosis; F17.290 Nicotine dependence, other tobacco product, uncomplicated; I71.6 Thoracoabdominal aortic aneurysm, without rupture; E87.6 Hypokalemia; Z72.89 Other problems related to lifestyle; Z88.0 Allergy status to penicillin; Z82.49 Family history of ischemic heart disease and other diseases of the circulatory system; Z79.82 Long term (current) use of aspirin; Z90.49 Acquired absence of other specified parts of digestive tract; Z79.02 Long term (current) use of antithrombotics/antiplatelets; Z86.718 Personal history of other venous thrombosis and embolism
CPT/HCPCS: 33285; 36415; 70496; 70498; 70551; 80048; 80053; 80061; 83036; 83735; 84100; 84443; 84484; 85025; 85610; 86618; 87040; 87641; 93005; 93306; 93308; A9270-GY; C1764; G8978-GP-CK; G8979-GP-CH; J1644; J2405; J3475; Q9967

== ENCOUNTER 2019-04-04 20:21 | Emergency (ER) | payer OTHER ==
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
[2019-04-04 22:32] VITALS: BP 136/81
[2019-04-04] MEDS ORDERED: Apixaban* 5 MG TAB PO SCH (23:00)
== END 2019-04-04 22:31 | disposition home or self-care (01) ==
LOC: ED 20:21
DX: I48.92 Unspecified atrial flutter (principal); I10 Essential (primary) hypertension; F17.290 Nicotine dependence, other tobacco product, uncomplicated; Z86.718 Personal history of other venous thrombosis and embolism; Z88.0 Allergy status to penicillin; Z79.02 Long term (current) use of antithrombotics/antiplatelets
CPT/HCPCS: 93005; 99283